=== PATIENT | female | born 1940 | race Two or more races ===

== ENCOUNTER 2018-11-20 13:36 | Inpatient (IN) | payer MEDICARE ==
[~2018-11-20] VITALS: Ht 152.4 cm; Wt 64.2 kg
[2018-11-20] MEDS ORDERED: HYDR-4833 PO (17:18)
[2018-11-20] MEDS ORDERED: LEVO100T8 PO (17:18)
[2018-11-20] MEDS ORDERED: FLUO-125 PO (17:18)
[2018-11-20] MEDS ORDERED: LORA0.5T12 PO (17:18)
[2018-11-20] MEDS ORDERED: FURO40TA4 PO (17:18)
[2018-11-20] MEDS ORDERED: CLOP75TA41 PO (17:18)
[2018-11-20] MEDS ORDERED: POTA10TA51 PO (17:18)
[2018-11-20] MEDS ORDERED: METF-370 PO (17:18)
[2018-11-20] MEDS ORDERED: METO25TA62 PO (17:18)
[2018-11-20] MEDS ORDERED: GEMF600T7 PO (17:18)
--- NOTE | 2018-11-20 17:29 | NUR ---
PAGED FOR ADMIT ORDERS
--- NOTE | 2018-11-20 17:40 | NUR ---
ADMIT ORDERS T/O READ BACK AND NOTED FROM DR Wil NASCIMENTO.
[2018-11-20] MEDS ORDERED: ONDANSETRON HCL 4 MG/2 ML VIAL IV PRN (17:45)
[2018-11-20] MEDS ORDERED: MORPHINE SULF INJ 2 MG/ML SYRINGE 1ML IV PRN (17:45)
[2018-11-20] MEDS ORDERED: NITROGLYCERIN 0.4 MG SL TAB SL PRN (17:45)
--- NOTE | 2018-11-20 17:50 | NUR ---
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
[2018-11-20] MEDS ORDERED: DEXTROSE (50%) 50ML SYRG IV PRN (18:00)
--- NOTE | 2018-11-20 18:20 | NUR ---
PLACED ON 02 AT 2L N/C ORDERED
--- NOTE | 2018-11-20 18:25 | NUR ---
PLACED ON TELE MONITOR
--- NOTE | 2018-11-20 18:30 | NUR ---
IV insertion IV access obtained, via clean sterile technique by inserting 20 gauge catheter at left FA after 1 attempt. IV secured properly. No trauma to site. Patient tolerated well.
[2018-11-20 22:00] VITALS: BP 111/69
[2018-11-20] MEDS ORDERED: METOPROLOL SUCCINATE XL 50 MG TAB PO SCH (22:00)
[2018-11-20] MEDS: PANTOPRAZOLE 40 MG TAB PO SCH (22:12)
[2018-11-20] MEDS: METOPROLOL TARTRATE 25 MG TAB PO SCH (22:12)
[2018-11-20] MEDS: InsuLIN REG 1unit/0.01ml Soln (100units/ml) SC SCH (22:13)
[2018-11-20] MEDS: ACCU-CHEK COMFORT CURVE STRIP VI SCH (22:13)
[2018-11-20] MEDS: LORazepam 0.5 MG TAB PO PRN (22:13)
[2018-11-20] MEDS: HYDROcodone-ACET 5/325MG TAB PO PRN (22:59)
[2018-11-20 23:30] LABS: Basophils # (auto) 0.1 uL; Basophils % (auto) 1.3 % (0.0-2.0); Eosinophils # (auto) 0.3 uL; Eosinophils % (auto) 3.1 % (0.0-7.0); Hematocrit 38.1 % (36.0-46.0); Lymphocytes # (auto) 2.6 uL; Lymphocytes % (auto) 29.8 % (10.0-50.0); Mean Corpuscular Hemoglobin 30.7 pg (28.0-32.0); Mean Corpuscular Hgb Conc. 34.2 g/dL (32.0-36.0); Mean Corpuscular Volume 89.8 fL (80.0-100.0); Monocytes % (auto) 11.1 % (0.0-12.0); Neutrophils # (auto) 4.8 uL; Neutrophils % (auto) 54.7 % (37.0-80.0); Platelet Count (auto) 234 10^3/uL (140-450); Red Blood Cells 4.25 10^6/uL (4.0-5.20); Red Cell Distribution Width 13.2 % (11.8-14.3); White Blood Cell 8.7 10^3/uL (4.4-10.8)
[2018-11-20 23:40] LABS: INR 1.01 (0.9-1.15); Partial Thromboplastin Time 23.7 sec (23.64-32.05)
[2018-11-20 23:57] LABS: Anion Gap 11 (5-15)
[2018-11-20 23:58] LABS: BUN/Creatinine Ratio 45.3; Blood Urea Nitrogen 58 mg/dL (7-18); Calcium 9.9 mg/dL (8.5-10.1); Carbon Dioxide 26 mmol/L (21-32); Chloride 100 mmol/L (98-107); GFR African American 52 mL/min; GFR Non-African American 43 mL/min; Glucose 122 mg/dL (74-106); Potassium 4.2 mmol/L (3.5-5.1); Sodium 137 mmol/L (136-145)
[2018-11-21] MEDS ORDERED: SOD CHL 0.45% 1,000 ML IV SCH (01:45)
[2018-11-21 05:00] VITALS: BP 96/63
[2018-11-21] MEDS: InsuLIN REG 1unit/0.01ml Soln (100units/ml) SC SCH ×4 (06:34→21:33)
[2018-11-21] MEDS: ACCU-CHEK COMFORT CURVE STRIP VI SCH ×4 (06:34→21:33)
[2018-11-21] MEDS: LEVOTHYROXINE SODIUM 100 MCG TAB PO SCH (06:34)
--- NOTE | 2018-11-21 07:13 | NUR ---
Opening Shift Note Patient transported by NOC RN Juan to laborer filter plant prior to this RN receiving report. Patient visualized stable without S/S of distress.
[2018-11-21] MEDS ORDERED: LIDOCAINE 2%HCL (LOCAL ANESTH.) INJ 20ML MDV ONE ×2 (07:40→08:51)
[2018-11-21] MEDS ORDERED: MIDAZOLAM HCL 1MG/1ML-2 ML VIAL ONE (08:00)
[2018-11-21] MEDS ORDERED: fentaNYL CITRATE 100 MCG/2 ML VL ONE (08:00)
[2018-11-21] MEDS ORDERED: ANGIOMAX 250 MG VIAL IV ONE (08:00)
[2018-11-21] MEDS ORDERED: SODIUM CHL 0.9% 50 ML ONE ×2 (08:00→08:23)
[2018-11-21] MEDS ORDERED: IODIXANOL 320MG/ML 100ML BTL IV ONE (08:02)
[2018-11-21] MEDS ORDERED: ADENOSINE 90 MG/30 ML INJ IV ONE (08:23)
[2018-11-21] MEDS ORDERED: POTASSIUM CHLORIDE 8 MEQ TAB PO SCH (10:00)
[2018-11-21] MEDS ORDERED: FUROSEMIDE 40 MG TAB PO SCH (10:00)
--- NOTE | 2018-11-21 10:30 | NUR ---
Returned to floor Patient has returned to tele floor post cath. Report received from Gwendolyn, vitals stable, right groin site cdi, no hematoma noted, pedal pulse 2+, instructed patient to lie flat until 1130. Patient verbalized understanding and would like to hold off on morning med pass until that time. All interventions from this morning documented upon patient's return.
[2018-11-21 10:35] VITALS: BP 106/62
[2018-11-21] MEDS: PANTOPRAZOLE 40 MG TAB PO SCH ×2 (11:40→21:43)
[2018-11-21] MEDS: METOPROLOL TARTRATE 25 MG TAB PO SCH ×2 (11:41→21:43)
[2018-11-21] MEDS: FLUoxetine HCL 20 MG CAP PO SCH (11:41)
[2018-11-21] MEDS: ASPirin 81 mg TAB PO SCH (11:42)
[2018-11-21] MEDS: CLOPIDOGREL BISULFATE 75 MG TAB PO SCH (11:42)
[2018-11-21] MEDS: GEMFIBROZIL 600 MG TAB PO SCH (11:42)
[2018-11-21] MEDS: SOD CHL 0.45% 1,000 ML IV SCH (11:43)
[2018-11-21 13:00] VITALS: BP 111/62
[2018-11-21 17:00] VITALS: BP 111/75
--- NOTE | 2018-11-21 17:25 | NUR ---
Groin site check Patient ambulated to bathroom, right groin site checked: no hematoma, bleeding, and pedal pulse +2, present.
--- NOTE | 2018-11-21 19:25 | NUR ---
Opening Shift Note Assumed care of patient, awake and alert. No S/S of distress/SOB or pain. Instructed on POC and to call for assist PRN, will continue to monitor for changes Q1hr and PRN. Bed in low position with HOB in [place]. Pt's call light in bed beside her. R groin dressing dry and intact with no new bleeding. Site soft without discoloration beyond gauze dressing.
--- NOTE | 2018-11-21 19:27 | NUR ---
Shift End Note Report given to MARION Felix, visualized right groin dressing together cdi, no hematoma present.
[2018-11-21 21:30] VITALS: BP 116/67
[2018-11-21] MEDS: LORazepam 0.5 MG TAB PO PRN (21:58)
[2018-11-21] MEDS: HYDROcodone-ACET 5/325MG TAB PO PRN (22:01)
[2018-11-22] MEDS: SOD CHL 0.45% 1,000 ML IV SCH (03:12)
[2018-11-22 05:00] VITALS: BP 111/61
[2018-11-22 05:56] LABS: BUN/Creatinine Ratio 44.9; Calcium 8.8 mg/dL (8.5-10.1); Potassium 3.9 mmol/L (3.5-5.1)
[2018-11-22] MEDS: ACCU-CHEK COMFORT CURVE STRIP VI SCH ×3 (06:46→17:29)
[2018-11-22] MEDS: InsuLIN REG 1unit/0.01ml Soln (100units/ml) SC SCH ×3 (06:47→17:00)
[2018-11-22] MEDS: LEVOTHYROXINE SODIUM 100 MCG TAB PO SCH (06:48)
--- NOTE | 2018-11-22 07:30 | NUR ---
Opening Shift Note RECEIVED REPORT FROM NOC RN. Assumed care of patient, awake and alert. No S/S of distress/SOB or pain. BED IN LOWEST, LOCKED POSITION WITH SIDERAILS UP x2. Instructed on POC and to call for assist PRN, will continue to monitor for changes Q1hr and PRN.
[2018-11-22 08:15] VITALS: BP 104/66
[2018-11-22 09:00] VITALS: BP 104/66
[2018-11-22] MEDS: FLUoxetine HCL 20 MG CAP PO SCH (09:34)
[2018-11-22] MEDS: ASPirin 81 mg TAB PO SCH (09:34)
[2018-11-22] MEDS: GEMFIBROZIL 600 MG TAB PO SCH (09:34)
[2018-11-22] MEDS: CLOPIDOGREL BISULFATE 75 MG TAB PO SCH (09:34)
[2018-11-22] MEDS: PANTOPRAZOLE 40 MG TAB PO SCH (09:34)
[2018-11-22] MEDS: METOPROLOL TARTRATE 25 MG TAB PO SCH (09:35)
--- NOTE | 2018-11-22 11:48 | NUR ---
DR. Sepideh NASCIMENTO AT BEDSIDE. PATIENT TO BE DISCHARGED AFTER DINNER TONIGHT (11/22/2018).
[2018-11-22 13:00] VITALS: BP 109/65
[2018-11-22 17:00] VITALS: BP 120/71
== END 2018-11-22 18:41 | disposition home or self-care (01) | DRG 286 ==
LOC: TELE-WESTW 16:21
PROVIDERS: ADMIT Specialist; ATTEND Specialist
PROC: B2111ZZ Fluoroscopy of Multiple Coronary Arteries using Low Osmolar Contrast (ICD-10-PCS; principal; 2018-11-21)
PROC: 4A023N6 Measurement of Cardiac Sampling and Pressure, Right Heart, Percutaneous Approach (ICD-10-PCS; 2018-11-21)
PROC: B2141ZZ Fluoroscopy of Right Heart using Low Osmolar Contrast (ICD-10-PCS; 2018-11-21)
PROC: 4A033BC Measurement of Arterial Pressure, Coronary, Percutaneous Approach (ICD-10-PCS; 2018-11-21)
PROC: 06HM33Z Insertion of Infusion Device into Right Femoral Vein, Percutaneous Approach (ICD-10-PCS; 2018-11-21)
PROC: B51B1ZA Fluoroscopy of Right Lower Extremity Veins using Low Osmolar Contrast, Guidance (ICD-10-PCS; 2018-11-21)
DX: I51.3 Intracardiac thrombosis, not elsewhere classified (principal); I50.33 Acute on chronic diastolic (congestive) heart failure; N17.9 Acute kidney failure, unspecified; Z95.2 Presence of prosthetic heart valve; E03.9 Hypothyroidism, unspecified; G89.29 Other chronic pain; I27.20 Pulmonary hypertension, unspecified; I25.10 Atherosclerotic heart disease of native coronary artery without angina pectoris; E11.9 Type 2 diabetes mellitus without complications
CPT/HCPCS: 36415; 71045; 80048; 82962; 84484; 85025; 85610; 85730; 87081; 93451; 93454; 93571; 99152; 99153; C1751; C1887; G0378; J0153; J1815; J2250; Q9967